=== PATIENT | male | born 1995 ===

== ENCOUNTER 2022-07-26 22:22 | Emergency (ER) | payer SELFPAY ==
[2022-07-26 22:42] VITALS: BP 123/64
[2022-07-26 23:33] LABS: Basophils % (Auto) 0.7 % (0.0-1.8); Eosinophils % (Auto) 0.2 % (0.0-4.3); Lymphocytes # (Auto) 0.9 K/mm3 (1.2-5.4); Lymphocytes % (Auto) 13.8 % (13.4-35.0); Mean Corpuscular HGB Conc 36 % (32-34); Mean Corpuscular Volume 82 fl (84-94); Monocytes # (Auto) 0.8 K/mm3 (0.0-0.8); Monocytes % (Auto) 12.8 % (0.0-7.3); Platelet Count 144 K/mm3 (140-440); Red Blood Count 4.73 M/mm3 (3.65-5.03); Red Cell Distribution Width 14.3 % (13.2-15.2)
[2022-07-26 23:50] LABS: Alanine Aminotransferase 19 units/L (7-56); Albumin 4.9 g/dL (3.9-5); BUN/Creatinine Ratio 8; Blood Urea Nitrogen 11 mg/dL (9-20); Calcium 8.9 mg/dL (8.4-10.2); Hemolysis Index 7
[2022-07-26 23:54] LABS: Hematocrit 38.6 % (35.5-45.6); Hemoglobin 13.9 gm/dl (11.8-15.2)
== END 2022-07-27 05:26 | disposition left against medical advice (07) ==
LOC: ED 22:22
DX: D57.1 Sickle-cell disease without crisis (principal); R50.81 Fever presenting with conditions classified elsewhere
CPT/HCPCS: 36415; 80053; 85025; 85045

== ENCOUNTER 2022-08-11 18:08 | Emergency (ER) | payer MEDICAID, OTHER ==
[2022-08-11] MEDS ORDERED: LIDOCAINE (2%) 20 MG/1 ML VIAL 20 ML MDV INFILTRATI STA (22:03)
[2022-08-12 02:36] VITALS: BP 103/42
--- NOTE | 2022-08-12 04:38 | Emergency Department Report ---
ED General Adult HPI - General Chief complaint: Skin/Abscess/Foreign Body Stated complaint: BUMP ON LOWER BACK Time Seen by Provider: 08/11/22 21:58 Source: patient Mode of arrival: Ambulatory Limitations: No Limitations - History of Present Illness Initial comments: -[place] male with medical with a few day history of swelling to his buttocks tender in nature with some fluctuance suspicious of an abscess. Ports no fever, chills, sweats. No hematuria no dysuria no hematemesis. -: Gradual Severity scale (0 -10): 3 Worsens with: none Associated Symptoms: denies other symptoms Treatments Prior to Arrival: none - Related Data Previous Rx's Medication Instructions Recorded Last Taken Type Chlorhexidine Gluconate [Hibiclens] 10 ml TP BID #240 liquid 08/12/22 Unknown Rx Clindamycin [Clindamycin CAP] 150 mg PO Q8HR #30 capsule 08/12/22 Unknown Rx Ketorolac [Toradol] 10 mg PO Q6H PRN #14 08/12/22 Unknown Rx Allergies Allergy/AdvReac Type Severity Reaction Status Date / Time folic acid Allergy Unknown Verified 08/11/22 18:31 Penicillins Allergy Unknown Verified 08/11/22 18:31 ED Review of Systems ROS: Stated complaint: BUMP ON LOWER BACK Other details as noted in HPI Comment: All other systems reviewed and negative ED Past Medical Hx - Medications Home Medications: Home Medications Medication Instructions Recorded Confirmed Last Taken Type Chlorhexidine Gluconate [Hibiclens] 10 ml TP BID #240 liquid 08/12/22 Unknown Rx Clindamycin [Clindamycin CAP] 150 mg PO Q8HR #30 capsule 08/12/22 Unknown Rx Ketorolac [Toradol] 10 mg PO Q6H PRN #08/12/22 Unknown Rx ED Physical Exam - General Limitations: No Limitations General appearance: alert, in no apparent distress - Head Head exam: Present: atraumatic, normocephalic - Eye Eye exam: Present: normal appearance - ENT ENT exam: Present: mucous membranes moist - Neck Neck exam: Present: normal inspection - Respiratory Respiratory exam: Present: normal lung sounds bilaterally. Absent: respiratory distress - Cardiovascular Cardiovascular Exam: Present: regular rate, normal rhythm. Absent: systolic murmur, diastolic murmur, rubs, gallop - GI/Abdominal GI/Abdominal exam: Present: soft, normal bowel sounds - Rectal Rectal exam: Present: deferred - Extremities Exam Extremities exam: Present: normal inspection - Back Exam Back exam: Present: normal inspection, other (Last prognosis swelling to the gluteal region. Tenderness with palpation. Mild cellulitis noted) - Neurological Exam Neurological exam: Present: alert, oriented X3 - Psychiatric Psychiatric exam: Present: normal affect, normal mood - Skin Skin exam: Present: warm, dry, intact, normal color. Absent: rash ED Course Vital Signs 08/11/22 08/11/22 08/12/22 18:16 18:29 02:35 Temperature 98.3 F 98 F Pulse Rate 124 H 91 H 79 Respiratory 18 18 16 Rate Blood Pressure 117/53 139/79 103/42 [Left] O2 Sat by Pulse 99 99 98 Oximetry - Procedure Description Procedures done: PRE-OP DIAGNOSIS: *Abscess. POST-OP DIAGNOSIS: Same. PROCEDURE: incision and drainage of abscess. Performing Physician/advanced practice provider: Javier Arreguin_. . PROCEDURE: A timeout protocol was performed prior to initiating the procedure. The area was prepared and draped in the usual, sterile manner. The site was anesthetized with 2% lidocaine without epinephrine. A linear incision was along the local skin lines was made and the a copious amount purulent material evacuated utilizing wall suction. The abcess was explored thoroughly and sequestered pockets were opened. Wound was irrigated with normal saline and bleeding was minimal. Packing: Quarter inch iodoform 18 centimeters. . Followup: The patient tolerated the procedure well without complications. Standard post-procedure care is explained and return precautions are given. Critical care attestation.: If time is entered above; I have spent that time in minutes in the direct care of this critically ill patient, excluding procedure time. ED Disposition Clinical Impression: Pilonidal abscess Disposition: HOME / SELF CARE / HOMELESS Is pt being admited?: No Does the pt Need Aspirin: No Condition: Stable Instructions: Skin Abscess, Pilonidal Cyst, Pilonidal Cyst Drainage, Care After Additional Instructions: Remove the packing in 36 hours Prescriptions: Clindamycin [Clindamycin CAP] 150 mg PO Q8HR #30 capsule Chlorhexidine Gluconate [Hibiclens] 10 ml TP BID #240 liquid Ketorolac [Toradol] 10 mg PO Q6H PRN #14 PRN Reason: Pain Referrals: [facility] [Provider Group] - 3-5 Days OBDULIA WINSTON MD [Staff Physician] - 3-5 Days
== END 2022-08-12 02:35 | disposition home or self-care (01) ==
LOC: ED 18:08
DX: L05.01 Pilonidal cyst with abscess (principal); Z88.0 Allergy status to penicillin; Z88.8 Allergy status to other drugs, medicaments and biological substances
CPT/HCPCS: 10080; 99282; J3490